=== PATIENT | male | born 1940 | race Caucasian/White ===

== ENCOUNTER 2017-02-27 14:24 | Day surgery (SDC) | payer OTHER, BC ==
[~2017-02-27] VITALS: Ht 188 cm; Wt 81.6 kg
[~2017-02-27 14:24] MED LIST: COZAAR50 MG PO; CRESTOR5 MG PO
== END 2017-02-27 15:50 | disposition home or self-care (01) ==
LOC: PAIN 14:24 → SDC 15:00 → PAIN 15:50
DX: M46.96 Unspecified inflammatory spondylopathy, lumbar region (principal); M54.5 Low back pain; G89.29 Other chronic pain; M51.36 Other intervertebral disc degeneration, lumbar region; M48.061 Spinal stenosis, lumbar region without neurogenic claudication; M25.78 Osteophyte, vertebrae; M54.2 Cervicalgia; I10 Essential (primary) hypertension; I25.10 Atherosclerotic heart disease of native coronary artery without angina pectoris; M75.101 Unspecified rotator cuff tear or rupture of right shoulder, not specified as traumatic; Z87.891 Personal history of nicotine dependence
CPT/HCPCS: J1030; J3010; S0020

== ENCOUNTER 2017-03-06 14:15 | Day surgery (SDC) | payer BC, OTHER ==
[~2017-03-06] VITALS: Ht 188 cm; Wt 82.6 kg
== END 2017-03-06 15:45 | disposition home or self-care (01) ==
LOC: PAIN 14:15 → SDC 15:00 → PAIN 15:45
DX: M47.816 Spondylosis without myelopathy or radiculopathy, lumbar region (principal); M54.5 Low back pain; G89.29 Other chronic pain; M51.26 Other intervertebral disc displacement, lumbar region; M48.061 Spinal stenosis, lumbar region without neurogenic claudication; I10 Essential (primary) hypertension; Z95.5 Presence of coronary angioplasty implant and graft; Z87.891 Personal history of nicotine dependence
CPT/HCPCS: J1030; J2250; J3010; S0020